=== PATIENT | male | born 1985 | race Two or more races ===

== ENCOUNTER 2021-10-17 22:02 | Emergency (ER) | payer MEDICAID ==
[~2021-10-17] VITALS: Ht 175.3 cm; Wt 117.9 kg
[2021-10-18] MEDS ORDERED: METOCLOPRAMIDE HCL 5MG/ml INJ 2ml VIAL IV ONE (00:30)
[2021-10-18] MEDS ORDERED: ACETAMINOPHEN 500 MG TAB PO ONE (00:30)
[2021-10-18] MEDS ORDERED: SODIUM CHLORIDE 0.9% 1,000 ML IV ONE (00:30)
[2021-10-18] MEDS ORDERED: KETOROLAC TROMETH 30 MG/ML 1ML VIAL IV ONE (00:30)
[2021-10-18 01:25] VITALS: BP 129/83
== END 2021-10-18 02:41 | disposition home or self-care (01) ==
LOC: ER 22:02
DX: G43.909 Migraine, unspecified, not intractable, without status migrainosus (principal)
CPT/HCPCS: 96361; 96374; 96375; 99284; J1885; J2765; J7030